=== PATIENT | male | born 1970 ===

== ENCOUNTER 2022-11-22 15:55 | Outpatient (AMB) | payer OTHER, SELFPAY ==
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
[2022-11-22 16:07] VITALS: BP 120/80; PULSE 87; O2SAT 97; BMI 28.5
== END 2022-11-22 17:00 | disposition home or self-care (01) ==
PROVIDERS: Visit Provider Internal Medicine
DX: Z00.00 Encounter for general adult medical examination without abnormal findings (principal); E78.00 Pure hypercholesterolemia, unspecified; M51.36 Other intervertebral disc degeneration, lumbar region; R29.898 Other symptoms and signs involving the musculoskeletal system; R39.12 Poor urinary stream; E66.3 Overweight
CPT/HCPCS: 99386

== ENCOUNTER 2023-01-15 09:47 | Outpatient (REF) | payer OTHER, SELFPAY ==
--- NOTE | 2023-01-15 09:52 | EMG_ITS ---
Please see scanned EMG / Nerve Conduction Report. MTDD
== END 2023-01-15 09:48 | disposition home or self-care (01) ==
LOC: HO.NEURO 09:47
PROVIDERS: PCP Internal Medicine; Visit Provider Internal Medicine
DX: R20.0 Anesthesia of skin (principal); R20.2 Paresthesia of skin; M79.604 Pain in right leg; M79.605 Pain in left leg; R29.898 Other symptoms and signs involving the musculoskeletal system
CPT/HCPCS: 95885; 95913

== ENCOUNTER 2023-02-18 16:46 | Outpatient (AMB) | payer OTHER, SELFPAY ==
[2023-02-18 16:47] VITALS: BP 132/80; PULSE 76; O2SAT 98; BMI 27.4
--- NOTE | 2023-02-18 16:47 | MHC.PC.OV ---
Vital Signs 02/18/23 16:47 Height 5 ft 8 in Weight 180 lb 2 oz BMI 27.4 BP 132/80 Blood Pressure Location Lt brachial Position Sitting Pulse 76 Pulse Source Pulse Oximeter Pulse Oximetry (%) 98 Oxygen Delivery Method Room Air Intake Visit Reasons: 3 month f/u In Tube Conversion Technician Required: No Accompanied by: Self / Same As Patient Allergies No Known Allergies Allergy (Verified 02/18/23 17:08) Medication List - Last Reconciled 02/18/23 by Jasson Og MD No Known Home Meds Tobacco use date assessed: 02/18/23 Dental Screening Dental Screen Date: 02/18/23 Did you have a dental visit in the last 12 months?: No Did you have a dental problem in the last 6 months where you did not have access to dental care?: No Was dental information given to patient?: No HPI 3 month f/u HPI Details Patient comes in today for his follow up visit States that his overall condition is unchanged from a few months ago and he still has increased pain over his lower back, with the pain sometimes going down the back of both legs States that his left arm still feels weak and he continues to experience recurrent pain over his left elbow area States that he had some labs done recently although there is absolutely no lab results in his chart and his previous lab orders are still listed as active in his chart so I am unclear as to what kind of tests patient had done - he claims that he had the tests done at [facility] and they were not the nerve conduction and EMG that he had done last month He denies any headaches or dizziness Denies any chest pains, no SOB No nausea/vomiting, no abdominal pain No change in bowel habits noted Would like to know how his EMG & NCV done last month came out [facility] Medical History Overweight (BMI 25.0-29.9) Lumbar degenerative disc disease Pure hypercholesterolemia Surgical History Hx of appendectomy (~2007) Hx of left knee surgery (~2012) History of laparoscopic cholecystectomy Family History Other Dementia Housing: Apartment Patient Tobacco Use Status: Never used Tobacco e-Cigarette/Vaping Use: Never Used service: No Current occupational status: unemployed Cognitive needs: No Hearing needs: No Vision needs: No Questionnaire PHQ-9 Over the last 2 weeks, how often have you been bothered by any of the following problems? 1. Little interest or pleasure in doing things: not at all 2. Feeling down, depressed, or hopeless: nearly every day 3. Trouble falling or staying asleep, or sleeping too much: several days 4. Feeling tired or having little energy: nearly every day 5. Poor appetite or overeating: not at all 6. Feeling bad about yourself - or that you are a failure or have let yourself or your family down: several days 7. Trouble concentrating on things, such as reading the newspaper or watching television: several days 8. Moving or speaking so slowly that other people could have noticed. Or the opposite - being so fidgety or restless that you have been moving around a lot more than usual: not at all 9. Thoughts that you would be better off or of hurting yourself in some way: several days Total score: 10 Depression Screening Interpretation: Positive Depression Screening Follow-up: Existing condition, Follow-up Visit Requested and Declines treatment Depression Screening Done: Yes 83172 - PHQ-9 Billing: Yes Source: Developed by Drs. Alhaji Dan, Suellen Lazar, Weston Quinn and colleagues, with an educational mimi from [employer]. Thrive Questionnaire Date Thrive assessed: 02/18/23 I am a: Patient What is your living situation today?: I have a steady place to live Within the past 12 months, did the food you bought not last and you didn't have the money to get more?: Never true Within the past 12 months, did you worry whether your food would run out before you got money to buy more?: Never true Do you have trouble paying for medicines?: No Do you have trouble getting transportation to medical appointments?: No Do you have trouble paying your heating and electricity bill?: No Do you have trouble taking care of your child, family member or friend?: No Do you have trouble with day-to-day activities such as bathing, preparing meals, shopping, managing finances, etc.?: No Are you currently unemployed and looking for a job?: No Are you interested in more education?: No Please select the resources that you would like help with: None Currently or been in a relationship where the following occur: no concerns reported AUDIT C Alcohol Use Questionnaire (AUDIT-C) 1. How often do you have a drink containing alcohol?: Never 3. How often do you have six or more drinks on one occasion?: Never Total Score: 0 Score Reviewed/Action Taken: Yes LAURA-7 AMB Questionnaire LAURA-7 Date LAURA - 7 assessed: 02/18/23 Feeling nervous, anxious, or on edge: 3 = Nearly every day Not being able to stop or control worryin = Several days Worrying too much about different things: 1 = Several days Trouble relaxin = Several days Being so restless that it is hard to sit still: 1 = Several days Becoming easily annoyed or irritable: 0 = Not at all Feeling afraid as if something awful might happen: 0 = Not at all Total LAURA-7 score (0-4 normal; 5-9 mild; 10-14 moderate; 15-21 severe): 7 Source: Developed by Drs. Alhaji Dan, Suellen Lazar, Weston Quinn and colleagues, with an educational mimi from [employer]. Review of Systems Const Denies chills, Denies fatigue, Denies fever(s) and Denies headache(s) ENT Denies dysphagia, Denies dizziness, Denies headache(s), Reports neck pain (at times), Denies odynophagia and Denies sore throat Card Denies chest pain, Denies rapid heart rate, Denies irregular heart rhythm, Denies palpitations and Denies dyspnea Resp Denies chest congestion, Denies cough, Denies dyspnea and Denies wheezing GI Denies abdominal pain, Denies constipation, Denies dysphagia, Denies heartburn, Denies diarrhea, Denies nausea, Denies odynophagia and Denies vomiting Denies difficulty urinating (although urine stream is still weak), Denies dysuria, Denies nocturia and Reports urinary frequency (at times) Musc Reports back pain (over the lower back - chronic), Reports muscle weakness (of the left arm) and Reports neck pain (at times) Skin/Breast Denies rash Neuro Denies dizziness, Denies headache(s) and Denies paresthesias Endo Denies fatigue and Denies palpitations Aller/Immun Denies wheezing Physical exam (Primary Care) Vital Signs: Last Vital Signs Pulse 76 02/18/23 16:47 BP 132/80 02/18/23 16:47 Pulse Ox 98 02/18/23 16:47 Oxygen Delivery Method Room Air 02/18/23 16:47 BMI result Body Mass Index 27.4 Tobacco/Smoking Status: Tobacco use Status Tobacco use date assessed 02/18/23 02/18/23 16:52 Patient Tobacco Use Status Never used Tobacco 02/18/23 16:52 e-Cigarette/Vaping Use Never Used 02/18/23 16:52 PHQ-9: PHQ-9 Score PHQ-9: Total score 10 02/18/23 16:52 Depression Screening Interpretation: Positive Depression Screening Follow-up: Existing condition, Follow-up Visit Requested and Declines treatment Thrive Assessment: Date of Thrive Assessment Date Thrive assessed 02/18/23 02/18/23 16:52 Currently or been in a relationship where the following occur: no concerns reported Const General: no acute distress and alert HENMT Ears: TM's normal bilaterally and EAC's normal Throat: Yes posterior oropharynx normal and Yes tonsils normal (no TP congestion) Neck Neck: Yes no lymphadenopathy and Yes supple Thyroid: Thyroid normal Resp Auscultation: clear to auscultation bilaterally, no rales and no wheezes Cardio Rate: regular rate Rhythm: regular rhythm Heart sounds: no murmurs GI Palpation (GI): Soft to palpation and nontender Auscultation: normal bowel sounds General: Yes no CVA tenderness Back/Spine/Pelvis Back: no CVA tenderness Cervical Spine: Cervical spine tenderness Thoracic/Lumbar Spine: lumbar spinal tenderness Skin Rashes: no rashes Neuro Other: (+) weakness of the left upper extremity, with motor strength at 3/5 Extrem General: Yes no clubbing, cyanosis or edema Left upper extremity: elbow/forearm Details: tenderness Location: of the olecranon and of the medial epicondyle Assessment and Plan Assessment & Plan (1) Pure hypercholesterolemia: Code(s): E78.00 - Pure hypercholesterolemia, unspecified Plan: Reinforced low cholesterol diet Will recheck his fasting lipids PARTH for follow up - he is advised to get these done PARTH and his previous lab orders are updated and printed out for him today (2) Lumbar degenerative disc disease: Code(s): M51.36 - Other intervertebral disc degeneration, lumbar region Plan: Reinforced activity and weight-lifting restrictions May need repeat imaging of his lumbar spine for further evaluation if his symptoms persist (3) Left arm weakness: Code(s): R29.898 - Other symptoms and signs involving the musculoskeletal system Plan: He is reassured that his EMG and NCV of the left upper extremity done last month came out normal May need to refer him to neurology for further evaluation if his arm weakness persist (4) Weak urine stream: Code(s): R39.12 - Poor urinary stream Plan: Most likely due to BPH as he reports taking Tamsulosin in the past Will send him again for labs to check his PSA level Will consider referring him to urology for further evaluation and management if his symptoms persist or progress (5) Overweight (BMI 25.0-29.9): Code(s): E66.3 - Overweight Plan: Reinforced diet/exercise as tolerated/lose weight Plan Follow up in 3 months Coding Level of Care Code Est Pt Level 3 (59289) Diagnoses Pure hypercholesterolemia E78.00 Lumbar degenerative disc disease M51.36 Left arm weakness R29.898 Weak urine stream R39.12 Overweight (BMI 25.0-29.9) E66.3
== END 2023-02-18 17:12 | disposition home or self-care (01) ==
PROVIDERS: PCP Internal Medicine; Visit Provider Internal Medicine
DX: E78.00 Pure hypercholesterolemia, unspecified (principal); M51.36 Other intervertebral disc degeneration, lumbar region; R29.898 Other symptoms and signs involving the musculoskeletal system; R39.12 Poor urinary stream; E66.3 Overweight
CPT/HCPCS: 99213

== ENCOUNTER 2023-02-21 08:25 | Outpatient (REF) | payer OTHER, SELFPAY ==
[2023-02-21 08:45] LABS: MANUAL DIFF FLAG NO
[2023-02-21 09:25] LABS: Basophils Percent Auto 0.8 % (0-2); Eosinophils Absolute Auto 0.1 X10*3/uL (0.0-0.4); Eosinophils Percent Auto 1.9 % (0-4); Hematocrit 44.9 % (42.0-52.0); Hemoglobin 15.2 g/dl (14.0-18.0); Imm Gran Abs Auto 0.01 X10*3/uL (0.00-0.03); Imm Gran Pct Auto 0.2 % (0.0-0.4); Lymphocytes Absolute Auto 1.7 X10*3/uL (1.2-4.9); Lymphocytes Percent Auto 33.9 % (20-40); Mean Corpuscular HGB Conc 33.9 g/dl (31.0-36.0); Mean Corpuscular Hemoglobin 30.2 pg (27.0-33.0); Mean Corpuscular Volume 89.1 fL (80.0-98.0); Mean Platelet Volume 9.4 fL (9.4-12.4); Monocytes Absolute Auto 0.4 X10*3/uL (0.1-1.2); Monocytes Percent Auto 8.2 % (2-11); Neutrophils Absolute Auto 2.8 x10*3/uL (2.0-8.3); Platelet Count 257 X10*3/uL (160-400); Red Blood Count 5.04 X10*6/uL (4.60-5.80); Red Cell Distribution Width 12.4 % (11.0-16.0); White Blood Count 5.1 X10*3/uL (4.8-10.8)
[2023-02-21 10:02] LABS: Alanine Aminotransferase 25 U/L (0-40); Albumin Level 4.1 g/dL (3.5-5.0); Alkaline Phosphatase 56 U/L (39-117); Anion Gap 9 (12-20); Aspartate Amino Transferase 23 U/L (5-37); Bilirubin Total 0.4 mg/dL (0.0-1.0); Blood Urea Nitrogen 13 mg/dL (9-16); Calcium 8.8 mg/dL (8.4-10.2); Carbon Dioxide 27 mmol/L (22-29); Chloride 110 mmol/L (96-108); Cholesterol 224 mg/dL (<200); Estimated Glomerular Filt Rate > 60; Glucose Fasting 105 mg/dL (60-99); HDL Cholesterol 49 mg/dL (>40); LDL Cholesterol Calculated 154 mg/dL (<100); Potassium 3.7 mmol/L (3.3-5.1); Sodium 142 mmol/L (135-145); Total Protein 6.8 g/dL (6.5-8.0); Triglycerides 107 mg/dL (<150)
[2023-02-21 10:20] LABS: TSH reflex Free T4 1.48 uIU/mL (0.32-4.0)
[2023-02-21 10:26] LABS: Folate 12.6 ng/mL (> or = 4.0); Vitamin B12 1170 pg/mL (200-900)
[2023-02-21 11:47] LABS: Appearance Urine Clear; Color Urine Yellow; Glucose Urine UA Negative (Negative); Leukocyte Esterase Urine Negative (Negative); Nitrite Urine Negative (Negative); PH 5.5 (5.0-9.0); Specific Gravity - Urine 1.025 (1.005-1.025); Urine Blood Negative (Negative); Urine Ketones Negative (Negative); Urine Protein Negative (Neg-Trace)
== END 2023-02-21 08:26 | disposition home or self-care (01) ==
LOC: HO.LAB 08:25
PROVIDERS: PCP Internal Medicine; Visit Provider Internal Medicine
DX: Z00.00 Encounter for general adult medical examination without abnormal findings (principal); Z12.5 Encounter for screening for malignant neoplasm of prostate; E78.00 Pure hypercholesterolemia, unspecified; E53.8 Deficiency of other specified B group vitamins; E55.9 Vitamin D deficiency, unspecified; R30.0 Dysuria; I10 Essential (primary) hypertension
CPT/HCPCS: 36415; 80053; 80061; 81003; 82306; 82607; 82746; 84153; 84443; 85025

== ENCOUNTER 2023-05-30 16:41 | Outpatient (AMB) | payer OTHER, SELFPAY ==
[2023-05-30 16:43] VITALS: BP 132/84; PULSE 75; O2SAT 99; BMI 28.2
--- NOTE | 2023-05-30 16:43 | MHC.PC.OV ---
Vital Signs 05/30/23 16:43 Height 5 ft 8 in Weight 185 lb 4 oz BMI 28.2 BP 132/84 Blood Pressure Location Lt brachial Position Sitting Pulse 75 Pulse Source Pulse Oximeter Pulse Oximetry (%) 99 Oxygen Delivery Method Room Air Intake Visit Reasons: 3 months f/u Analytical Consultant Required: No Accompanied by: Self / Same As Patient Allergies No Known Allergies Allergy (Verified 05/30/23 17:04) Medication List - Last Reconciled 05/30/23 by Jasson Og MD No Known Home Meds Tobacco use date assessed: 05/30/23 Dental Screening Dental Screen Date: 05/30/23 Did you have a dental visit in the last 12 months?: No Did you have a dental problem in the last 6 months where you did not have access to dental care?: Yes Was dental information given to patient?: Yes HPI 3 months f/u HPI Details Patient comes in today for his follow up visit States that he feels okay He reports experiencing recurrent headaches (about 2 to 3 times a week) and states that he often has some photophobia and occasional nausea associated with his headaches; denies any dizziness Denies any chest pains, no SOB No vomiting, no abdominal pain and no change in bowel habits noted He would like to go over in details the results of his labs done a few days after his last visit in January 2023 [facility] Medical History (Updated 06/01/23 @ 19:31 by Jasson Og MD) Vitamin D deficiency Overweight (BMI 25.0-29.9) Lumbar degenerative disc disease Pure hypercholesterolemia Surgical History Hx of appendectomy (~2007) Hx of left knee surgery (~2012) History of laparoscopic cholecystectomy Family History Other Dementia Social History Housing: Apartment Patient Tobacco Use Status: Never used Tobacco e-Cigarette/Vaping Use: Never Used service: No Current occupational status: unemployed Cognitive needs: No Hearing needs: No Vision needs: No Questionnaire PHQ-9 Over the last 2 weeks, how often have you been bothered by any of the following problems? 1. Little interest or pleasure in doing things: several days 2. Feeling down, depressed, or hopeless: several days 3. Trouble falling or staying asleep, or sleeping too much: several days 4. Feeling tired or having little energy: several days 5. Poor appetite or overeating: several days 6. Feeling bad about yourself - or that you are a failure or have let yourself or your family down: more than half the days 7. Trouble concentrating on things, such as reading the newspaper or watching television: several days 8. Moving or speaking so slowly that other people could have noticed. Or the opposite - being so fidgety or restless that you have been moving around a lot more than usual: more than half the days 9. Thoughts that you would be better off or of hurting yourself in some way: not at all Total score: 10 Depression Screening Interpretation: Positive Depression Screening Follow-up: Existing condition, Community Mental Health Worker F/U and Follow-up Visit Requested Depression Screening Done: Yes 19947 - PHQ-9 Billing: Yes Source: Developed by Drs. Alhaji Dan, Suellen Lazar, Weston Quinn and colleagues, with an educational mimi from [employer]. Thrive Questionnaire Date Thrive assessed: 05/30/23 I am a: Patient What is your living situation today?: I have a steady place to live Within the past 12 months, did the food you bought not last and you didn't have the money to get more?: Never true Within the past 12 months, did you worry whether your food would run out before you got money to buy more?: Never true Do you have trouble paying for medicines?: No Do you have trouble getting transportation to medical appointments?: No Do you have trouble paying your heating and electricity bill?: No Do you have trouble taking care of your child, family member or friend?: No Do you have trouble with day-to-day activities such as bathing, preparing meals, shopping, managing finances, etc.?: No Are you interested in more education?: No Please select the resources that you would like help with: None Currently or been in a relationship where the following occur: no concerns reported THRIVE Score: 0 AUDIT C Alcohol Use Questionnaire (AUDIT-C) 1. How often do you have a drink containing alcohol?: Never 3. How often do you have six or more drinks on one occasion?: Never Total Score: 0 Score Reviewed/Action Taken: Yes LAURA-7 AMB Questionnaire LAURA-7 Date LAURA - 7 assessed: 05/30/23 Feeling nervous, anxious, or on edge: 1 = Several days Not being able to stop or control worryin = Several days Worrying too much about different things: 1 = Several days Trouble relaxin = Several days Being so restless that it is hard to sit still: 2 = More than half the days Becoming easily annoyed or irritable: 3 = Nearly every day Feeling afraid as if something awful might happen: 1 = Several days Total LAURA-7 score (0-4 normal; 5-9 mild; 10-14 moderate; 15-21 severe): 10 Source: Developed by Drs. Alhaji Dan, Suellen Lazar, Weston Quinn and colleagues, with an educational mimi from [employer]. LAURA-7 Assessment Billing LAURA-7 Assessment Tool: LAURA-7 Assessment 71227 Review of Systems Const Denies chills, Denies fatigue, Denies fever(s) and Reports headache(s) (on and off) ENT Denies dysphagia, Denies dizziness, Denies otalgia, Reports headache(s) (on and off), Denies neck pain, Denies odynophagia and Denies sore throat Card Denies chest pain, Denies palpitations and Denies dyspnea Resp Denies cough and Denies dyspnea GI Denies abdominal pain, Denies constipation, Denies dysphagia, Denies heartburn, Denies diarrhea, Denies nausea, Denies odynophagia and Denies vomiting Reports oliguria (urine stream feels weak often), Denies dysuria, Denies nocturia and Denies urinary frequency Musc Reports back pain (over the lower back, on and off) and Denies neck pain Skin/Breast Denies rash Neuro Denies dizziness and Reports headache(s) (on and off) Endo Denies fatigue and Denies palpitations Physical exam (Primary Care) Vital Signs: Last Vital Signs Pulse 75 05/30/23 16:43 BP 132/84 05/30/23 16:43 Pulse Ox 99 05/30/23 16:43 Oxygen Delivery Method Room Air 05/30/23 16:43 BMI result Body Mass Index 28.2 Tobacco/Smoking Status: Tobacco use Status Tobacco use date assessed 05/30/23 05/30/23 16:45 Patient Tobacco Use Status Never used Tobacco 05/30/23 16:45 e-Cigarette/Vaping Use Never Used 05/30/23 16:45 PHQ-9: PHQ-9 Score PHQ-9: Total score 10 05/30/23 17:03 Depression Screening Interpretation: Positive Depression Screening Follow-up: Existing condition, Community Mental Health Worker F/U and Follow-up Visit Requested Thrive Assessment: Date of Thrive Assessment Date Thrive assessed 05/30/23 05/30/23 16:53 Currently or been in a relationship where the following occur: no concerns reported Const General: no acute distress and alert HENMT Ears: TM's normal bilaterally and EAC's normal Throat: Yes posterior oropharynx normal and Yes tonsils normal (no TP congestion) Neck Neck: Yes no lymphadenopathy and Yes supple Resp Auscultation: clear to auscultation bilaterally, no rales and no wheezes Cardio Rate: regular rate Rhythm: regular rhythm Heart sounds: no murmurs GI Palpation (GI): Soft to palpation and nontender Auscultation: normal bowel sounds Back/Spine/Pelvis Thoracic/Lumbar Spine: lumbar spinal tenderness (mild) Skin General skin exam: no rashes or lesions noted Extrem General: Yes no clubbing, cyanosis or edema Results Reviewed Results Reviewed: Laboratory Tests 02/21/23 02/21/23 02/21/23 08:35 08:35 10:15 WBC 5.1 Hgb 15.2 Hct 44.9 Plt Count 257 Sodium 142 Potassium 3.7 Creatinine 0.98 Estimated GFR > 60 Fasting Glucose 105 H Calcium 8.8 AST 23 ALT 25 Triglycerides 107 Cholesterol 224 H LDL Cholesterol, Calc 154 H HDL Cholesterol 49 Vitamin B12 1170 H 25-OH Vitamin D Total 26.0 L TSH 1.48 Ur Specific [place] 1.025 Urine Protein Negative Urine Glucose (UA) Negative Urine Blood Negative Urine Nitrite Ur Leukocyte Esterase 02/21/23 10:15 WBC Hgb Hct Plt Count Sodium Potassium Creatinine Estimated GFR Fasting Glucose Calcium AST ALT Triglycerides Cholesterol LDL Cholesterol, Calc HDL Cholesterol Vitamin B12 25-OH Vitamin D Total TSH Ur Specific [place] Urine Protein Urine Glucose (UA) Urine Blood Urine Nitrite Negative Ur Leukocyte Esterase Negative Assessment and Plan Assessment & Plan (1) Pure hypercholesterolemia: Code(s): E78.00 - Pure hypercholesterolemia, unspecified Plan: Results of his labs done back in January 2023 reviewed and discussed with patient - cautioned that his LDL cholesterol was elevated back in January 2023 Reinforced low cholesterol diet Will start him on Atorvastatin 10 mg QD Will recheck his labs and fasting lipids in 4 months for follow up (2) Lumbar degenerative disc disease: Code(s): M51.36 - Other intervertebral disc degeneration, lumbar region Plan: Reinforced activity and weight-lifting restrictions Will have him get some (repeat) x-rays of his lumbar spine for further evaluation - advised that he can get these done when he goes for his follow up labs in a few months (3) Headache: Code(s): R51.9 - Headache, unspecified Qualifiers: Headache type: unspecified Headache chronicity pattern: unspecified pattern Intractability: not intractable Qualified Code(s): R51.9 - Headache, unspecified Plan: Discussed that his headaches are likely migraine headaches He is advised to try to figure out if he has any triggers to his headaches, including foods or drinks, and to try to avoid them as much as possible Advised that lack of sleep and increased stress can also be potential triggers Will start him for now on Fioricet PRN Will consider referring him to neurology for further evaluation and management if his headaches persist or progress (4) Impaired fasting glucose: Code(s): R73.01 - Impaired fasting glucose Plan: Patient is advised that his FBS was also elevated slightly on his labs done a few months ago Reinforced low calorie/low carb diet Will recheck his FBS and also check his HgbA1c in a few months for follow up / further evaluation (5) Vitamin D deficiency: Code(s): E55.9 - Vitamin D deficiency, unspecified Plan: Will start him on Vitamin D3 2000 units QD (6) Weak urine stream: Code(s): R39.12 - Poor urinary stream Plan: Most likely due to BPH as he reports taking Tamsulosin in the past His PSA level was normal at 2.10 back in January 2023 Will consider referring him to urology for further evaluation and management if his symptoms persist or progress (7) Overweight (BMI 25.0-29.9): Code(s): E66.3 - Overweight Plan: Reinforced diet/exercise as tolerated/lose weight Plan Follow up in 4 months Orders: Orders XR lumbar spine 2-3V 4 Months M51.36 - Other intervertebral disc degeneration, lumbar region Complete Blood Count Auto Diff 4 Months D64.9 - Anemia, unspecified Comprehensive [place]. Panel Fast 4 Months E78.00 - Pure hypercholesterolemia, unspecified Lipid Panel 4 Months E78.00 - Pure hypercholesterolemia, unspecified Vitamin D 25-OH Total 4 Months E55.9 - Vitamin D deficiency, unspecified Hemoglobin A1c 4 Months R73.01 - Impaired fasting glucose Medications: New atorvastatin 10 mg PO BEDTIME 30 tabs 3RF [id number] 50-300-40 mg (Fioricet) Take only as needed for headaches 1 cap PO TID 10 days PRN 30 caps 1RF headache cholecalciferol (vitamin D3) 50 mcg PO DAILY 90 days 90 caps 3RF E55.9 - Vitamin D deficiency, unspecified Coding Level of Care Code Est Pt Level 4 (49257) Diagnoses Pure hypercholesterolemia E78.00 Lumbar degenerative disc disease M51.36 Nonintractable headache, unspecified chronicity pattern, unspecified headache type R51.9 Headache type: unspecified Headache chronicity pattern: unspecified pattern Intractability: not intractable Impaired fasting glucose R73.01 Vitamin D deficiency E55.9 Weak urine stream R39.12 Overweight (BMI 25.0-29.9) E66.3 Additional Codes LAURA-7 Assessment Billing - LAURA-7 Assessment Tool: LAURA-7 Assessment [id number] ([id number])
== END 2023-05-30 17:13 | disposition home or self-care (01) ==
LOC: HO.HMGH 16:41
PROVIDERS: PCP Internal Medicine; Visit Provider Internal Medicine
DX: E78.00 Pure hypercholesterolemia, unspecified (principal); M51.36 Other intervertebral disc degeneration, lumbar region; R51.9 Headache, unspecified; R73.01 Impaired fasting glucose; E55.9 Vitamin D deficiency, unspecified; R39.12 Poor urinary stream; E66.3 Overweight
CPT/HCPCS: 99214

== ENCOUNTER 2024-01-27 12:55 | Outpatient (REF) | payer OTHER, SELFPAY ==
[2024-01-27 13:12] LABS: MANUAL DIFF FLAG NO
[2024-01-27 13:48] LABS: Basophils Absolute Auto 0.1 X10*3/uL (0.0-0.2); Basophils Percent Auto 0.9 % (0-2); Eosinophils Absolute Auto 0.2 X10*3/uL (0.0-0.4); Eosinophils Percent Auto 3.9 % (0-4); Hematocrit 45.7 % (42.0-52.0); Hemoglobin 15.8 g/dl (14.0-18.0); Imm Gran Abs Auto 0.02 X10*3/uL (0.00-0.03); Imm Gran Pct Auto 0.3 % (0.0-0.4); Lymphocytes Absolute Auto 1.7 X10*3/uL (1.2-4.9); Lymphocytes Percent Auto 28.5 % (20-40); Mean Corpuscular HGB Conc 34.6 g/dl (31.0-36.0); Mean Corpuscular Hemoglobin 30.6 pg (27.0-33.0); Mean Corpuscular Volume 88.4 fL (80.0-98.0); Mean Platelet Volume 8.9 fL (9.4-12.4); Monocytes Absolute Auto 0.5 X10*3/uL (0.1-1.2); Monocytes Percent Auto 8.9 % (2-11); Neutrophils Absolute Auto 3.4 x10*3/uL (2.0-8.3); Neutrophils Percent Auto 57.5 % (45-73); Platelet Count 266 X10*3/uL (160-400); Red Blood Count 5.17 X10*6/uL (4.60-5.80); White Blood Count 5.9 X10*3/uL (4.8-10.8)
[2024-01-27 13:50] LABS: Estimated Average Glucose 114 mg/dL; Hemoglobin A1C 153.5276 umol/L; Hemoglobin A1c % 5.6 % (<6.0); Total Hemoglobin (HGBA1C) 4020.4272 umol/L
[2024-01-27 14:29] LABS: Alanine Aminotransferase 35 U/L (0-40); Albumin Level 4.5 g/dL (3.5-5.0); Alkaline Phosphatase 65 U/L (39-117); Anion Gap 11 (12-20); Aspartate Amino Transferase 31 U/L (5-37); Bilirubin Total 0.7 mg/dL (0.0-1.0); Blood Urea Nitrogen 13 mg/dL (9-16); Calcium 9.5 mg/dL (8.4-10.2); Carbon Dioxide 27 mmol/L (22-29); Chloride 107 mmol/L (96-108); Cholesterol 232 mg/dL (<200); Estimated Glomerular Filt Rate > 60; Glucose Fasting 92 mg/dL (60-99); HDL Cholesterol 53 mg/dL (>40); LDL Cholesterol Calculated 155 mg/dL (<100); Potassium 4.6 mmol/L (3.3-5.1); Sodium 140 mmol/L (135-145); Total Protein 7.2 g/dL (6.5-8.0); Triglycerides 122 mg/dL (<150)
[2024-01-27 14:35] LABS: Vitamin D 25-OH Total 23.9 ng/mL (>30)
== END 2024-01-27 12:56 | disposition home or self-care (01) ==
LOC: HO.LAB 12:55
PROVIDERS: PCP Internal Medicine; Visit Provider Internal Medicine
DX: D64.9 Anemia, unspecified (principal); E78.00 Pure hypercholesterolemia, unspecified; E55.9 Vitamin D deficiency, unspecified; R73.01 Impaired fasting glucose; M51.360 Other intervertebral disc degeneration, lumbar region with discogenic back pain only
CPT/HCPCS: 36415; 72100; 80053; 80061; 82306; 83036; 85025

== ENCOUNTER 2024-02-06 15:43 | Outpatient (AMB) | payer OTHER, SELFPAY ==
[2024-02-06 15:49] VITALS: BP 122/80; PULSE 76; O2SAT 98; BMI 26.9
--- NOTE | 2024-02-06 15:49 | MHC.PC.OV ---
Vital Signs 02/06/24 15:49 Height 5 ft 8 in Weight 177 lb BMI 26.9 BP 122/80 Blood Pressure Location Lt brachial Position Sitting Pulse 76 Pulse Source Pulse Oximeter Pulse Oximetry (%) 98 Oxygen Delivery Method Room Air Intake Visit Reasons: follow up [employer] Flooring Required: No Accompanied by: Self / Same As Patient Allergies No Known Allergies Allergy (Verified 02/06/24 16:24) Medication List - Last Reconciled 02/06/24 by Jasson Og MD atorvastatin 10 mg PO BEDTIME fljzrgvczg-flqhyvuhyfgdc-lzmp 50-300-40 mg (Fioricet) 1 cap PO TID PRN 10 days dijxmadhym-dchruetaseoyu-dhhn 50-325-40 mg 1 tab PO Q6-8H PRN cholecalciferol (vitamin D3) 50 mcg PO DAILY 90 days Tobacco use date assessed: 02/06/24 Dental Screening Dental Screen Date: 02/06/24 Did you have a dental visit in the last 12 months?: Yes Did you have a dental problem in the last 6 months where you did not have access to dental care?: No Was dental information given to patient?: Patient has dentist HPI follow up HPI Details Patient comes in today for his follow up visit States that he is feeling overwhelmed at times lately as he's had to take care of his elderly father, who is suffering from dementia States that he feels okay otherwise He denies any headaches or dizziness Denies any chest pains, no SOB No nausea/vomiting, no abdominal pain No change in bowel habits noted Needs his Atorvastatin Rx refilled - states that he has been out of his Rx for about 3 weeks now as his pharmacy reportedly keeps telling him that his PCP is not refilling his Rx He had his follow up labs done last week - to discuss his results [facility] Medical History Vitamin D deficiency Overweight (BMI 25.0-29.9) Lumbar degenerative disc disease Pure hypercholesterolemia Surgical History Hx of appendectomy (~2007) Hx of left knee surgery (~2012) History of laparoscopic cholecystectomy Family History Other Dementia Social History Housing: Apartment Patient Tobacco Use Status: Never used Tobacco e-Cigarette/Vaping Use: Never Used service: No Current occupational status: unemployed Cognitive needs: No Hearing needs: No Vision needs: No Questionnaire PHQ-9 Over the last 2 weeks, how often have you been bothered by any of the following problems? 1. Little interest or pleasure in doing things: several days 2. Feeling down, depressed, or hopeless: several days 3. Trouble falling or staying asleep, or sleeping too much: several days 4. Feeling tired or having little energy: several days 5. Poor appetite or overeating: several days 6. Feeling bad about yourself - or that you are a failure or have let yourself or your family down: more than half the days 7. Trouble concentrating on things, such as reading the newspaper or watching television: several days 8. Moving or speaking so slowly that other people could have noticed. Or the opposite - being so fidgety or restless that you have been moving around a lot more than usual: more than half the days 9. Thoughts that you would be better off or of hurting yourself in some way: not at all Total score: 10 Depression Screening Interpretation: Positive Depression Screening Follow-up: Existing condition, Community Mental Health Worker F/U and Follow-up Visit Requested Depression Screening Done: Yes 85920 - PHQ-9 Billing: Yes Source: Developed by Drs. Alhaji Dan, Suellen Lazar, Weston Quinn and colleagues, with an educational mimi from [employer]. Thrive Questionnaire Date Thrive assessed: 02/06/24 I am a: Patient What is your living situation today?: I have a steady place to live Within the past 12 months, did the food you bought not last and you didn't have the money to get more?: Never true Within the past 12 months, did you worry whether your food would run out before you got money to buy more?: Never true Do you have trouble paying for medicines?: No Do you have trouble getting transportation to medical appointments?: No Do you have trouble paying your heating and electricity bill?: No Do you have trouble taking care of your child, family member or friend?: No Do you have trouble with day-to-day activities such as bathing, preparing meals, shopping, managing finances, etc.?: No Are you interested in more education?: No Please select the resources that you would like help with: None Currently or been in a relationship where the following occur: No concerns reported THRIVE Score: 0 AUDIT C Alcohol Use Questionnaire (AUDIT-C) 1. How often do you have a drink containing alcohol?: Never 3. How often do you have six or more drinks on one occasion?: Never Total Score: 0 Score Reviewed/Action Taken: Yes LAURA-7 AMB Questionnaire LAURA-7 Date LAURA - 7 assessed: 02/06/24 Feeling nervous, anxious, or on edge: 1 = Several days Not being able to stop or control worryin = Several days Worrying too much about different things: 1 = Several days Trouble relaxin = Several days Being so restless that it is hard to sit still: 2 = More than half the days Becoming easily annoyed or irritable: 3 = Nearly every day Feeling afraid as if something awful might happen: 1 = Several days Total LAURA-7 score (0-4 normal; 5-9 mild; 10-14 moderate; 15-21 severe): 10 Source: Developed by Drs. Alhaji Dan, Suellen Lazar, Weston Quinn and colleagues, with an educational mimi from [employer]. LAURA-7 Assessment Billing LAURA-7 Assessment Tool: LAURA-7 Assessment 00671 Review of Systems Const Denies chills, Denies fatigue, Denies fever(s) and Denies headache(s) ENT Denies dysphagia, Denies dizziness, Denies otalgia, Denies headache(s), Denies neck pain, Denies odynophagia and Denies sore throat Card Denies chest pain, Denies palpitations and Denies dyspnea Resp Denies chest congestion, Denies cough and Denies dyspnea GI Denies abdominal pain, Denies constipation, Denies dysphagia, Denies heartburn, Denies diarrhea, Denies nausea, Denies odynophagia and Denies vomiting Reports oliguria (urine stream feels weak often), Denies dysuria, Denies nocturia and Denies urinary frequency Musc Reports back pain (over the lower back, on and off) and Denies neck pain Skin/Breast Denies rash Neuro Denies dizziness and Denies headache(s) Endo Denies fatigue and Denies palpitations Physical exam (Primary Care) Vital Signs: Last Vital Signs Pulse 76 02/06/24 15:49 BP 122/80 02/06/24 15:49 Pulse Ox 98 02/06/24 15:49 Oxygen Delivery Method Room Air 02/06/24 15:49 BMI result Body Mass Index 26.9 Tobacco/Smoking Status: Tobacco use Status Tobacco use date assessed 02/06/24 02/06/24 15:54 Patient Tobacco Use Status Never used Tobacco 02/06/24 15:54 e-Cigarette/Vaping Use Never Used 02/06/24 15:54 PHQ-9: PHQ-9 Score PHQ-9: Total score 10 02/07/24 00:42 Depression Screening Interpretation: Positive Depression Screening Follow-up: Existing condition, Community Mental Health Worker F/U and Follow-up Visit Requested Thrive Assessment: Date of Thrive Assessment Date Thrive assessed 02/06/24 02/06/24 15:54 Currently or been in a relationship where the following occur: No concerns reported Const General: no acute distress and alert HENMT Ears: TM's normal bilaterally and EAC's normal Throat: Yes posterior oropharynx normal and Yes tonsils normal (no TP congestion) Neck Neck: Yes no lymphadenopathy and Yes supple Thyroid: Thyroid normal Resp Auscultation: clear to auscultation bilaterally, no rales and no wheezes Cardio Rate: regular rate Rhythm: regular rhythm Heart sounds: no murmurs GI Palpation (GI): Soft to palpation and nontender Auscultation: normal bowel sounds General: Yes no CVA tenderness Back/Spine/Pelvis Back: no CVA tenderness Thoracic/Lumbar Spine: lumbar spinal tenderness (mild) Skin Rashes: no rashes Extrem General: Yes no clubbing, cyanosis or edema Results Reviewed Results Reviewed: Laboratory Tests 01/27/24 13:10 WBC 5.9 Hgb 15.8 Hct 45.7 Plt Count 266 Sodium 140 Potassium 4.6 Creatinine 1.01 Estimated GFR > 60 Fasting Glucose 92 Hemoglobin A1c % 5.6 Calcium 9.5 D AST 31 ALT 35 Triglycerides 122 Cholesterol 232 H LDL Cholesterol, Calc 155 H HDL Cholesterol 53 25-OH Vitamin D Total 23.9 L Coding Level of Care Code Est Pt Level 4 (76215) Diagnoses Pure hypercholesterolemia E78.00 Degeneration of intervertebral disc of lumbar region with discogenic back pain M51.360 Disc-related pain type: discogenic back pain only Nonintractable headache, unspecified chronicity pattern, unspecified headache type R51.9 Headache type: unspecified Headache chronicity pattern: unspecified pattern Intractability: not intractable Impaired fasting glucose R73.01 Vitamin D deficiency E55.9 Weak urine stream R39.12 Overweight (BMI 25.0-29.9) E66.3 Additional Codes LARUA-7 Assessment Billing - LAURA-7 Assessment Tool: LAURA-7 Assessment 51487 ([id number]) PHQ-9 - 22973 - PHQ-9 Billing: Yes ([id number]) Assessment & Plan Assessment & Plan (1) Pure hypercholesterolemia: Code(s): E78.00 - Pure hypercholesterolemia, unspecified Category: Medical Plan: Results of his labs done last week reviewed and discussed with patient - he is advised that his LDL cholesterol remains high (155 mg/dl), most likely because he has been out of his Rx for the past 3 weeks Patient is reportedly being advised that we are denying his Rx refill but have advised patient that we have received NO requests at all for his Atorvastatin Rx refill in the past 3 weeks As his cholesterol level remains high and patient reports that he was on as high as 40 mg of Atorvastatin in the past, will go ahead and raise his dose to Atorvastatin 20 mg QD Reinforced low cholesterol diet Will recheck his labs and fasting lipids in 4 months for follow up (2) Lumbar degenerative disc disease: Code(s): M51.36 - Other intervertebral disc degeneration, lumbar region Category: Medical Qualifiers: Disc-related pain type: discogenic back pain only Qualified Code(s): M51.360 - Other intervertebral disc degeneration, lumbar region with discogenic back pain only Plan: Reinforced activity and weight-lifting restrictions to minimize aggravating his lower back pain He went for his repeat lumbar spine x-rays last week - results are still NOT available for review at this time (3) Headache: Code(s): R51.9 - Headache, unspecified Category: Medical Qualifiers: Headache type: unspecified Headache chronicity pattern: unspecified pattern Intractability: not intractable Qualified Code(s): R51.9 - Headache, unspecified Plan: Patient is advised again that his headaches are likely migraine headaches, and that increased stress and lack of sleep are both potential triggers for migraine headaches Reinforced avoidance of all potential triggers as much as possible Continue Fioricet PRN for now but can consider referring him to neurology for further evaluation and management if his headaches persist or progress (4) Impaired fasting glucose: Code(s): R73.01 - Impaired fasting glucose Category: Medical Plan: His FBS was normal at 92 mg/dl on his recent labs; HgbA1c was also normal at 5.6% Reinforced low calorie/low carb diet (5) Vitamin D deficiency: Code(s): E55.9 - Vitamin D deficiency, unspecified Category: Medical Plan: Continue Vitamin D3 2000 units QD (6) Weak urine stream: Code(s): R39.12 - Poor urinary stream Category: Medical Plan: He is again advised that this is most likely secondary to BPH Patient reports taking Tamsulosin in the past His PSA level was normal at 2.10 back in January 2023; will recheck this again in a few months for follow up Will consider referring him to urology for further evaluation and management if his symptoms persist or progress (7) Overweight (BMI 25.0-29.9): Code(s): E66.3 - Overweight Category: Medical Plan: Reinforced diet/exercise as tolerated/lose weight Plan Follow up in 4 months Orders: Orders Comprehensive Cullen. Panel Fast 4 Months E78.00 - Pure hypercholesterolemia, unspecified Vitamin D 25-OH Total 4 Months E55.9 - Vitamin D deficiency, unspecified Lipid Panel 4 Months E78.00 - Pure hypercholesterolemia, unspecified Prostate Specific Antigen 4 Months N40.0 - Benign prostatic hyperplasia without lower urinary tract symptoms Complete Blood Count Auto Diff 4 Months D64.9 - Anemia, unspecified UA CC w/rflx Micro + Cult 4 Months R30.0 - Dysuria Medications: Changed From atorvastatin 10 mg PO BEDTIME 30 tabs 3RF To atorvastatin 10 mg PO BEDTIME 90 days 90 tabs 1RF Refilled cholecalciferol (vitamin D3) 50 mcg PO DAILY 90 days 90 caps 3RF E55.9 - Vitamin D deficiency, unspecified
== END 2024-02-06 16:33 | disposition home or self-care (01) ==
LOC: HO.HMCH 15:43
PROVIDERS: PCP Internal Medicine; Visit Provider Internal Medicine
DX: E78.00 Pure hypercholesterolemia, unspecified (principal); M51.360 Other intervertebral disc degeneration, lumbar region with discogenic back pain only; R51.9 Headache, unspecified; R73.01 Impaired fasting glucose; E55.9 Vitamin D deficiency, unspecified; R39.12 Poor urinary stream; E66.3 Overweight

== ENCOUNTER → 2024-02-06 15:43 | Outpatient (BNVA) | payer OTHER, SELFPAY | PROVIDERS: PCP Internal Medicine; Visit Provider Internal Medicine | DX: E78.00 Pure hypercholesterolemia, unspecified (principal); M51.360 Other intervertebral disc degeneration, lumbar region with discogenic back pain only; R51.9 Headache, unspecified; R73.01 Impaired fasting glucose; E55.9 Vitamin D deficiency, unspecified; R39.12 Poor urinary stream; E66.3 Overweight | CPT/HCPCS: 96127; 99212 ==

== ENCOUNTER 2024-10-13 09:54 | Outpatient (REF) | payer OTHER, SELFPAY ==
[2024-10-13 10:19] LABS: MANUAL DIFF FLAG NO
--- OUTSIDE RECORDS SUMMARY | 2024-10-13 10:30 | XMS_ITS | Clinical Summary ---
[facility] [address] [place] [address] Care Team Providers Care Recreation Officer Name Role Phone Myles Viera MD Primary Care Pr ovider Allergies No known active allergies Surgical History Surgery Date Site/Laterality Comments OTHER SURGICAL HISTORY 04/17/2022 PROCEDURE: LAPAROSCOPY, CHOLECYSTECTOMY CHOLECYSTECTOMY PROCEDURE: [place] LAPAROSCOPY SURG CHOLECYSTECTOMY Social History Tobacco Use Types Packs/Day Years Used Date Smoking Tobacco: Never Smokeless Tobacco: Never Alcohol Use Standard Drinks/Week Comments Never 0 (1 standard drink = 0.6 oz pur e alcohol) Sex and Gender Information Value Date Recorded Sex Assigned at Not on file Legal Sex Male 4:56 PM EST Gender Identity Not on file Sexual Orientation Not on file Obstetrics History Last Filed Vital Signs Vital Sign Reading Time Taken Comments Blood Pressure 121/83 05/07/2022 3:22 PM EST Pulse 88 05/07/2022 3:22 PM EST Temperature - - Respiratory Rate - - Oxygen Saturation - - Inhaled Oxygen Concentration - - Weight 81.6 kg (179 lb 12.8 oz) 05/07/2022 3:22 PM EST Height 172.7 cm (5' 8 ) 05/07/2022 3:22 PM EST Body Mass Index 27.34 05/07/2022 3:22 PM EST Plan of Treatment Health Maintenance Due Date Last Done Comments DTaP,Tdap,and Td Vaccines (1 - Tdap) 1988 Hepatitis B Vaccines (1 of 3 - 19+ 3-dose series) 1988 Pneumococcal Vaccine: 50+ Ye ars (1 of 1 - PCV) 2019 Zoster Vaccines (1 of 2) 2019 Cholesterol Screening (Lipid Panel) 03/10/2022 Colorectal Cancer Screening: Colonoscopy 03/10/2022 Depression Screening 03/10/2022 HIV Screening 03/10/2022 Hepatitis C Screening 03/10/2022 Social Influencers of Health Screening 03/10/2022 COVID-19 Vaccine ( - 2023-2 5 season) 2023 Influenza Vaccine (#1) 2024 HIB Vaccines Aged Out No longer eligi ble based on patient's age to complete this topic HPV Vaccines Aged Out No longer eligi ble based on patient's age to complete this topic Hepatitis A Vaccines Aged Out No long er eligible based on patient's age to complete this topic IPV Vaccines Aged Out No longer eligi ble based on patient's age to complete this topic MMR Vaccines Aged Out No longer eligi ble based on patient's age to complete this topic Meningococcal ACWY Vaccine Aged Out N o longer eligible based on patient's age to complete this topic Meningococcal B Vaccine Aged Out No l onger eligible based on patient's age to complete this topic RSV Immunization Patients Un quin 20 months Aged Out No longer eligible b ased on patient's age to complete this topic Varicella Vaccines Aged Out No longer eligible based on patient's age to complete this topic Care Teams Recreation Officer Relationship Specialty Start Date End Date Myles Viera MD PCP - General 02/25/22
[2024-10-13 10:38] LABS: Hematocrit 41.5 % (42.0-52.0); Hemoglobin 14.6 g/dl (14.0-18.0); Imm Gran Abs Auto 0.01 X10*3/uL (0.00-0.03); Imm Gran Pct Auto 0.2 % (0.0-0.4); Lymphocytes Absolute Auto 1.3 X10*3/uL (1.2-4.9); Mean Corpuscular HGB Conc 35.2 g/dl (31.0-36.0); Mean Corpuscular Hemoglobin 30.7 pg (27.0-33.0); Mean Corpuscular Volume 87.2 fL (80.0-98.0); NRBC Abs Auto 0.000 X10*3/uL (0.0-0.012); NRBC Pct Auto 0.0 /100WBC (0.0-0.2); Platelet Count 228 X10*3/uL (160-400); Red Blood Count 4.76 X10*6/uL (4.60-5.80); White Blood Count 4.4 X10*3/uL (4.8-10.8)
[2024-10-13 11:17] LABS: Alanine Aminotransferase 18 U/L (0-40); Albumin Level 4.2 g/dL (3.5-5.0); Alkaline Phosphatase 61 U/L (39-117); Anion Gap 9 (12-20); Aspartate Amino Transferase 23 U/L (5-37); Blood Urea Nitrogen 12 mg/dL (9-16); Calcium 8.8 mg/dL (8.4-10.2); Carbon Dioxide 29 mmol/L (22-29); Chloride 108 mmol/L (96-108); Cholesterol 183 mg/dL (<200); Estimated Glomerular Filt Rate > 60; HDL Cholesterol 51 mg/dL (>40); Potassium 3.8 mmol/L (3.3-5.1); Sodium 142 mmol/L (135-145); Total Protein 6.4 g/dL (6.5-8.0); Triglycerides 78 mg/dL (<150)
[2024-10-13 11:36] LABS: Prostate Specific Antigen 1.57 ng/mL (<0.05-4.0)
== END 2024-10-13 09:55 | disposition home or self-care (01) ==
LOC: HO.LAB 09:54
PROVIDERS: PCP Internal Medicine; Visit Provider Internal Medicine
DX: N40.0 Benign prostatic hyperplasia without lower urinary tract symptoms (principal); E78.00 Pure hypercholesterolemia, unspecified; D64.9 Anemia, unspecified; E55.9 Vitamin D deficiency, unspecified
CPT/HCPCS: 36415; 80053; 80061; 82306; 84153; 85025

== ENCOUNTER 2024-10-15 14:03 | Outpatient (REF) | payer OTHER, SELFPAY ==
--- OUTSIDE RECORDS SUMMARY | 2024-10-15 14:05 | XMS_ITS | Clinical Summary ---
Author Organization [facility] Address [address] [place] [address] Care Team Providers Care Document Reviewer Name Role Phone Myles Viera MD Primary Care Pr ovider Allergies No known active allergies Surgical History Surgery Date Site/Laterality Comments OTHER SURGICAL HISTORY 04/17/2022 PROCEDURE: LAPAROSCOPY, CHOLECYSTECTOMY CHOLECYSTECTOMY PROCEDURE: [place] LAPAROSCOPY SURG CHOLECYSTECTOMY Social History Tobacco Use [...] age to complete this topic Care Teams Document Reviewer Relationship Specialty Start Date End Date Myles Viera MD PCP - General 02/25/22
[2024-10-15 14:13] LABS: Appearance Urine Clear; Glucose Urine UA Negative (Negative); PH 6.5 (5.0-9.0); Specific Gravity - Urine 1.010 (1.005-1.025)
== END 2024-10-15 14:04 | disposition home or self-care (01) ==
LOC: HO.LNP 14:03
PROVIDERS: Visit Provider Internal Medicine
DX: R30.0 Dysuria (principal)
CPT/HCPCS: 81003

== ENCOUNTER 2024-10-20 15:13 | Outpatient (AMB) | payer OTHER, SELFPAY ==
--- NOTE | 2024-10-20 15:15 | MHC.PC.OV ---
Vital Signs 10/20/24 15:16 Height 5 ft 8 in Weight 171 lb 6 oz BMI 26.1 BP 126/80 Blood Pressure Location Lt brachial Position Sitting Pulse 79 Pulse Source Pulse Oximeter Pulse Oximetry (%) 97 Oxygen Delivery Method Room Air Intake Visit Reasons: hyperlipidemia Position Classification Specialist Required: No Accompanied by: Self / Same As Patient Allergies No Known Allergies Allergy (Verified 10/20/24 15:38) Medication List - Last Reconciled 10/20/24 by Jasson Og MD cholecalciferol (vitamin D3) 50 mcg PO DAILY 90 days Tobacco use date assessed: 10/20/24 Dental Screening Dental Screen Date: 10/20/24 Did you have a dental visit in the last 12 months?: Yes Did you have a dental problem in the last 6 months where you did not have access to dental care?: No Was dental information given to patient?: Patient has dentist HPI hyperlipidemia HPI Details Patient comes in today for his follow up visit States that he continues to experience recurrent low back pain - states that he's had low back pain for years but feels that they have gotten worse over the past couple of years Relates that he feels okay otherwise He denies any headaches or dizziness Denies any chest pains, no increased SOB No nausea/vomiting, no abdominal pain No change in bowel habits noted He had his follow up labs done last week - to discuss his results Admits that he never took the cholesterol medication (Atorvastatin) that he was started on at his last visit as he decided that he wants to try getting his cholesterol numbers down the old fashioned way with dieting and natural methods [facility] Medical History Vitamin D deficiency Overweight (BMI 25.0-29.9) Lumbar degenerative disc disease Pure hypercholesterolemia Surgical History Hx of appendectomy (~2007) Hx of left knee surgery (~2012) History of laparoscopic cholecystectomy Family History Other Dementia Social History Housing: Apartment Patient Tobacco Use Status: Never used Tobacco e-Cigarette/Vaping Use: Never Used service: No Current occupational status: unemployed Cognitive needs: No Hearing needs: No Vision needs: No Questionnaire PHQ-9 Over the last 2 weeks, how often have you been bothered by any of the following problems? 1. Little interest or pleasure in doing things: several days 2. Feeling down, depressed, or hopeless: several days 3. Trouble falling or staying asleep, or sleeping too much: several days 4. Feeling tired or having little energy: several days 5. Poor appetite or overeating: several days 6. Feeling bad about yourself - or that you are a failure or have let yourself or your family down: more than half the days 7. Trouble concentrating on things, such as reading the newspaper or watching television: several days 8. Moving or speaking so slowly that other people could have noticed. Or the opposite - being so fidgety or restless that you have been moving around a lot more than usual: more than half the days 9. Thoughts that you would be better off or of hurting yourself in some way: not at all Total score: 10 Depression Screening Interpretation: Positive Depression Screening Follow-up: Existing condition and Community Mental Health Worker F/U Depression Screening Done: Yes 11612 - PHQ-9 Billing: Yes Source: Developed by Drs. Alhaji Dan, Suellen Lazar, Weston Quinn and colleagues, with an educational mimi from [employer]. Thrive Questionnaire Date Thrive assessed: 10/20/24 I am a: Patient What is your living situation today?: I have a steady place to live Within the past 12 months, did the food you bought not last and you didn't have the money to get more?: Never true Within the past 12 months, did you worry whether your food would run out before you got money to buy more?: Never true Do you have trouble paying for medicines?: No Do you have trouble getting transportation to medical appointments?: No Do you have trouble paying your heating and electricity bill?: No Do you have trouble taking care of your child, family member or friend?: No Do you have trouble with day-to-day activities such as bathing, preparing meals, shopping, managing finances, etc.?: No Are you currently unemployed and looking for a job?: No Are you interested in more education?: No Please select the resources that you would like help with: None Currently or been in a relationship where the following occur: No concerns reported THRIVE Score: 0 AUDIT C Alcohol Use Questionnaire (AUDIT-C) 1. How often do you have a drink containing alcohol?: Never 3. How often do you have six or more drinks on one occasion?: Never Total Score: 0 Score Reviewed/Action Taken: Yes LAURA-7 AMB Questionnaire LAURA-7 Date LAURA - 7 assessed: 10/20/24 Feeling nervous, anxious, or on edge: 1 = Several days Not being able to stop or control worryin = Several days Worrying too much about different things: 1 = Several days Trouble relaxin = Several days Being so restless that it is hard to sit still: 2 = More than half the days Becoming easily annoyed or irritable: 3 = Nearly every day Feeling afraid as if something awful might happen: 1 = Several days Total LAURA-7 score (0-4 normal; 5-9 mild; 10-14 moderate; 15-21 severe): 10 Source: Developed by Drs. Alhaji Dan, Suellen Lazar, Weston Quinn and colleagues, with an educational mimi from [employer]. LAURA-7 Assessment Billing LAURA-7 Assessment Tool: LAURA-7 Assessment 57458 Review of Systems Const Denies chills, Denies fatigue, Denies fever(s) and Denies headache(s) ENT Denies dysphagia, Denies dizziness, Denies otalgia, Denies headache(s), Denies neck pain, Denies odynophagia and Denies sore throat Card Denies chest pain, Denies palpitations and Denies dyspnea Resp Denies chest congestion, Denies cough and Denies dyspnea GI Denies abdominal pain, Denies constipation, Denies dysphagia, Denies heartburn, Denies diarrhea, Denies nausea, Denies odynophagia and Denies vomiting Denies difficulty urinating, Denies dysuria, Denies nocturia and Denies urinary frequency Musc Reports back pain (over the lower back - see HPI) and Denies neck pain Skin/Breast Denies rash Neuro Denies dizziness and Denies headache(s) Endo Denies fatigue and Denies palpitations Physical exam (Primary Care) Vital Signs: Last Vital Signs Pulse 79 10/20/24 15:16 BP 126/80 10/20/24 15:16 Pulse Ox 97 10/20/24 15:16 Oxygen Delivery Method Room Air 10/20/24 15:16 BMI result Body Mass Index 26.1 Tobacco/Smoking Status: Tobacco use Status Tobacco use date assessed 10/20/24 10/20/24 15:22 Patient Tobacco Use Status Never used Tobacco 10/20/24 15:22 e-Cigarette/Vaping Use Never Used 10/20/24 15:22 PHQ-9: PHQ-9 Score PHQ-9: Total score 10 10/20/24 15:54 Depression Screening Interpretation: Positive Depression Screening Follow-up: Existing condition and Community Mental Health Worker F/U Thrive Assessment: Date of Thrive Assessment Date Thrive assessed 10/20/24 10/20/24 15:22 Currently or been in a relationship where the following occur: No concerns reported Const General: no acute distress and alert HENMT Ears: TM's normal bilaterally and EAC's normal Throat: Yes posterior oropharynx normal and Yes tonsils normal (no TP congestion) Neck Neck: Yes supple and No lymphadenopathy Thyroid: Thyroid normal Resp Auscultation: clear to auscultation bilaterally, no rales and no wheezes Cardio Rate: regular rate Rhythm: regular rhythm Heart sounds: no murmurs GI Palpation (GI): Soft to palpation and nontender Auscultation: normal bowel sounds General: Yes no CVA tenderness Back/Spine/Pelvis Back: no CVA tenderness Thoracic/Lumbar Spine: lumbar spinal tenderness (mild) Skin Rashes: no rashes Extrem General: Yes no clubbing, cyanosis or edema Results Reviewed Results Reviewed: Laboratory Tests 10/13/24 10/15/24 10:18 00:07 WBC 4.4 L Hgb 14.6 Hct 41.5 L Plt Count 228 Sodium 142 Potassium 3.8 Creatinine 1.05 Estimated GFR > 60 Fasting Glucose 99 Calcium 8.8 D AST 23 ALT 18 Triglycerides 78 Cholesterol 183 LDL Cholesterol, Calc 117 H HDL Cholesterol 51 Prostate Specific Ag 1.57 25-OH Vitamin D Total 18.4 L Ur Specific [place] 1.010 Urine Protein Negative Urine Glucose (UA) Negative Urine Blood Negative Urine Nitrite Negative Ur Leukocyte Esterase Negative m Coding Level of Care Code Est Pt Level 4 (14093) Diagnoses Pure hypercholesterolemia E78.00 Degeneration of intervertebral disc of lumbar region with discogenic back pain M51.360 Disc-related pain type: discogenic back pain only Nonintractable headache, unspecified chronicity pattern, unspecified headache type R51.9 Headache chronicity pattern: unspecified pattern Headache type: unspecified Intractability: not intractable Impaired fasting glucose R73.01 Vitamin D deficiency E55.9 Weak urine stream R39.12 Overweight (BMI 25.0-29.9) E66.3 Additional Codes LAURA-7 Assessment Billing - LAURA-7 Assessment Tool: LAURA-7 Assessment 94114 ([id number]) PHQ-9 - 10730 - PHQ-9 Billing: Yes ([id number]) Assessment & Plan Assessment & Plan (1) Pure hypercholesterolemia: Code(s): E78.00 - Pure hypercholesterolemia, unspecified Category: Medical Plan: Results of his labs done last week reviewed and discussed with patient - his cholesterol levels have improved significantly from previous, with his LDL cholesterol now at 117 mg/dl Reinforced low cholesterol diet He was supposed to be on Atorvastatin 20 mg QD but he admits that he never took the cholesterol medication (Atorvastatin) that he was started on at his last visit as he decided that he wants to try getting his cholesterol numbers down the old fashioned way with dieting and natural methods Will recheck his labs and fasting lipids in 4 months for follow up (2) Lumbar degenerative disc disease: Code(s): M51.36 - Other intervertebral disc degeneration, lumbar region Category: Medical Qualifiers: Disc-related pain type: discogenic back pain only Qualified Code(s): M51.360 - Other intervertebral disc degeneration, lumbar region with discogenic back pain only Plan: Reinforced activity and weight-lifting restrictions to minimize aggravating his lower back pain Repeat lumbar spine x-rays done in December 2023 revealed (+) mild to moderate multilevel spondylosis of the lumbosacral spine Have advised him that if his low back pain continues to bother him, we can refer him to physical therapy for his low back pain (3) Headache: Code(s): R51.9 - Headache, unspecified Category: Medical Qualifiers: Headache chronicity pattern: unspecified pattern Headache type: unspecified Intractability: not intractable Qualified Code(s): R51.9 - Headache, unspecified Plan: Have advised again that his headaches are likely migraine headaches, and that increased stress and lack of sleep are both potential triggers for migraine headaches Reinforced avoidance of all potential triggers as much as possible Continue Fioricet PRN for now but can consider referring him to neurology for further evaluation and management if his headaches persist or progress (4) Impaired fasting glucose: Code(s): R73.01 - Impaired fasting glucose Category: Medical Plan: His FBS was normal at 99 mg/dl on his recent labs; HgbA1c was normal at 5.6% when previously checked Reinforced low calorie/low carb diet (5) Vitamin D deficiency: Code(s): E55.9 - Vitamin D deficiency, unspecified Category: Medical Plan: Continue Vitamin D3 2000 units QD (6) Weak urine stream: Code(s): R39.12 - Poor urinary stream Category: Medical Plan: He is again advised that this is most likely secondary to BPH Patient reports taking Tamsulosin in the past His PSA level was normal at 2.10 back in January 2023 and is lower at 1.57 on is recent labs Will consider referring him to urology for further evaluation and management if his symptoms persist or progress (7) Overweight (BMI 25.0-29.9): Code(s): E66.3 - Overweight Category: Medical Plan: Reinforced diet/exercise as tolerated/lose weight Plan Follow up in 6 months Orders: Orders Complete Blood Count Auto Diff 6 Months D64.9 - Anemia, unspecified Comprehensive Beason. Panel Fast 6 Months E78.00 - Pure hypercholesterolemia, unspecified Lipid Panel 6 Months E78.00 - Pure hypercholesterolemia, unspecified
[2024-10-20 15:16] VITALS: BP 126/80; PULSE 79; O2SAT 97; BMI 26.1
--- OUTSIDE RECORDS SUMMARY | 2024-10-20 15:41 | XMS_ITS | Clinical Summary ---
Author Organization [facility] ity Address [address] [place] [address] Care Team Providers Care Emulsion Coater Name Role Phone Myles Viera MD Primary [...] Panel) 03/10/2022 Colorectal Cancer Screening: Colonoscopy 03/10/2022 HIV Screening 03/10/2022 Hepatitis C Screening 03/10/2022 Social Influencers of Health Screening 03/10/2022 COVID-19 Vaccine ( - 2023-2 5 season) 2023 Depression Screening 03/31/2024 Influenza Vaccine (#1) 2024 HIB Vaccines Aged [...] age to complete this topic Care Teams Emulsion Coater Relationship Specialty Start Date End Date Myles Viera MD PCP - General 02/25/22
== END 2024-10-20 15:49 | disposition home or self-care (01) ==
LOC: HO.HMCH 15:13
PROVIDERS: PCP Internal Medicine; Visit Provider Internal Medicine
DX: E78.00 Pure hypercholesterolemia, unspecified (principal); M51.360 Other intervertebral disc degeneration, lumbar region with discogenic back pain only; R51.9 Headache, unspecified; R73.01 Impaired fasting glucose; E55.9 Vitamin D deficiency, unspecified; R39.12 Poor urinary stream; E66.3 Overweight

== ENCOUNTER → 2024-10-20 15:13 | Outpatient (BNVA) | payer OTHER, SELFPAY | PROVIDERS: PCP Internal Medicine; Visit Provider Internal Medicine | DX: M51.360 Other intervertebral disc degeneration, lumbar region with discogenic back pain only (principal); E78.00 Pure hypercholesterolemia, unspecified; R51.9 Headache, unspecified; R73.01 Impaired fasting glucose; E55.9 Vitamin D deficiency, unspecified; R39.12 Poor urinary stream; E66.3 Overweight; D64.9 Anemia, unspecified; Z68.26 Body mass index [BMI] 26.0-26.9, adult | CPT/HCPCS: 96127; 99212 ==